=== PATIENT | male | born 1985 | race Caucasian/White ===

== ENCOUNTER 2017-04-20 13:44 | Emergency (ER) | payer OTHER ==
[~2017-04-20] VITALS: Ht 177.8 cm; Wt 68.7 kg
[~2017-04-20 13:44] MED LIST: NOHOMEMEDS
[2017-04-20 14:36] LABS: HEMATOCRIT 46.9 % (38.0-50.0); MCH 32.9 PG (29.0-34.0); MCHC 34.5 G/DL (30.0-36.0); MCV 95.3 FL (86-99); MEAN PLAT.VOLUME 9.1 uM^3 (9.0-12.4); PLATELET COUNT 300 K/uL (156-360); RBC DIS.WIDTH-CV 12.9 % (11.8-14.6); RBC DIS.WIDTH-SD 45.7 % (39-53); RED BLOOD COUNT 4.92 M/uL (4.00-5.50); WHITE BLOOD COUNT 7.2 K/uL (4.1-10.2)
[2017-04-20 14:45] LABS: CHLORIDE 101 mEq/L (99-109); POTASSIUM 4.2 mEq/L (3.7-5.4); SODIUM 140 mEq/L (136-147)
[2017-04-20 14:47] LABS: GLUCOSE 72 mg/dL (70-99)
[2017-04-20 14:48] LABS: ANION GAP 12 MEQ/L (2-14)
[2017-04-20 14:51] LABS: GFR ESTIMATE (CALCULATED) > 59 mL/min/
[2017-04-20 14:52] LABS: UREA NITROGEN (BUN) 10 mg/dL (9-23)
[2017-04-20 14:58] LABS: TROP-I INTERPRETATION NEGATIVE; TROPONIN-I < 0.01 ng/mL (0.0-0.30)
[2017-04-20 17:40] VITALS: BP 128/78
== END 2017-04-20 17:43 | disposition left against medical advice (07) ==
LOC: EME 13:44
DX: R07.9 Chest pain, unspecified (principal); M79.602 Pain in left arm; F14.90 Cocaine use, unspecified, uncomplicated; J45.909 Unspecified asthma, uncomplicated; F17.200 Nicotine dependence, unspecified, uncomplicated; Z87.442 Personal history of urinary calculi
CPT/HCPCS: 71020; 80048; 84484; 85027; 93005; 99281; 99285